=== PATIENT | female | born 1980 | race Caucasian/White ===

== ENCOUNTER 2017-10-24 20:09 | Emergency (ER) | payer MEDICAID, OTHER ==
[~2017-10-24] VITALS: Ht 162.6 cm; Wt 49.9 kg
[~2017-10-24 20:09] MED LIST: NAPR250T PO; NITR100C15 PO; ONDA4TAB8 PO
--- NOTE | 2017-10-24 23:00 | NUR ---
ASSUME PT CARE. RESTING IN BED. HERE FOR CHRONIC BACK PAIN BUT NOW PT IS STATING THAT PAIN IS R/T LLE. STABLE VITALS. NAD NOTED. AWAITING MD MATTHEWS.
--- NOTE | 2017-10-24 23:12 | NUR ---
Patient discharged to home in stable condition. Written and verbal after care instructions given. Patient verbalizes understanding of instruction.
[2017-10-24 23:14] VITALS: BP 115/76
== END 2017-10-24 23:15 | disposition home or self-care (01) ==
LOC: ER 20:18
DX: M54.42 Lumbago with sciatica, left side (principal); G89.29 Other chronic pain; F17.210 Nicotine dependence, cigarettes, uncomplicated; Z87.39 Personal history of other diseases of the musculoskeletal system and connective tissue; Z98.890 Other specified postprocedural states
CPT/HCPCS: 99282; A4606; Z7610

== ENCOUNTER 2018-01-17 12:00 | Emergency (ER) | payer MEDICAID ==
[~2018-01-17] VITALS: Ht 162.6 cm; Wt 49.9 kg
--- NOTE | 2018-01-17 12:10 | NUR ---
PATIENT STATES SHE WAS TAKING TRASH OUT AND ALL THE SUDDEN HER BACK HURT AND SHE WAS NOT ABLE TO WALK. STATES SHE HAS NOT TAKEN ANYTHING FOR PAIN AND IS ANXIOUS. STATES 10/10 BACK PAIN AND ABLE TO MOVE INDEPENDENTLY IN BED.
--- NOTE | 2018-01-17 12:36 | NUR ---
URINE SAMPLE OBTAINED
[2018-01-17 13:07] LABS: APPEARANCE,URINE Clear (CLEAR); BILIRUBIN,URINE Negative (NEGATIVE); BLOOD, URINE Trace-intact Ery/uL (NEGATIVE); COLOR,URINE Yellow (YELLOW); KETONES,URINE Negative (NEGATIVE); LEUKOCYTE ESTERASE ,URINE Negative (NEGATIVE); NITRITE, URINE Negative (NEGATIVE); PROTEIN,URINE Negative (NEGATIVE); UGLUCOSE Negative (NEGATIVE); UROBILINOGEN,URINE 0.2 EU/dL (0.2)
[2018-01-17] MEDS ORDERED: KETOROLAC TROMETHAMINE INJ 30 MG/ML VIAL ONE (13:09)
[2018-01-17] MEDS ORDERED: DEXAMETHASONE SOD PHOSPHATE 10 MG/ML VIAL ONE (13:09)
[2018-01-17] MEDS ORDERED: DIAZEPAM 5 MG TABLET ONE (13:10)
[2018-01-17 13:12] LABS: BACTERIA,URINE Rare /HPF (None Seen); RBC,URINE 0-2 /HPF (0-2); SQUAMOUS EPITHELIAL CELL,UR Rare /HPF (None Seen); WBC,URINE 0-2 /HPF (0-3)
[2018-01-17] MEDS: DEXAMETHASONE SOD PHOSPHATE 4 MG/ML VIAL IM ONE (13:12)
[2018-01-17] MEDS: KETOROLAC TROMETHAMINE INJ 60 MG/2 ML VIAL IM ONE (13:13)
--- NOTE | 2018-01-17 13:19 | NUR ---
PATIENT REFUSING VALIUM AT THIS TIME.
[2018-01-17] MEDS: DIAZEPAM 10 MG TABLET PO ONE (13:31)
[2018-01-17] MEDS ORDERED: ONDANSETRON 4 MG TAB.RAPDIS ONE (14:57)
[2018-01-17] MEDS ORDERED: MORPHINE SULFATE INJ 4 MG/ML DISP.SYRIN ONE (14:57)
--- NOTE | 2018-01-17 15:00 | NUR ---
PATIENT STATES PAIN IS BETTER WITH PREVIOUS IM MEDICATIONS BUT STILL UNABLE TO AMBULATE. PER MD 4MG IM MORPHINE TO BE GIVEN. PATIENT AGREEABLE
[2018-01-17] MEDS: ONDANSETRON 4 MG TAB.RAPDIS SL ONE (15:15)
[2018-01-17] MEDS: MORPHINE SULFATE INJ 4 MG/ML DISP.SYRIN IM ONE (15:15)
--- NOTE | 2018-01-17 15:55 | NUR ---
PATIENT ABLUATING WELL. STATES PAIN HAS IMPROVED
--- NOTE | 2018-01-17 16:37 | NUR ---
Patient discharged to home in stable condition. Written and verbal after care instructions given. Patient verbalizes understanding of instruction.
[2018-01-17 16:38] VITALS: BP 106/56
--- NOTE | 2018-01-17 16:38 | NUR ---
Patient discharged to home in stable condition. Written and verbal after care instructions given. Patient verbalizes understanding of instruction.
--- NOTE | 2018-01-17 16:38 | NUR ---
VICKIE REYES INFORMED THAT PATIENT WANTS TO TALK TO HER BEFORE SHE LEAVES.
== END 2018-01-17 16:39 | disposition home or self-care (01) ==
LOC: ER 12:02
DX: M54.42 Lumbago with sciatica, left side (principal); M51.36 Other intervertebral disc degeneration, lumbar region; F17.210 Nicotine dependence, cigarettes, uncomplicated; Z98.890 Other specified postprocedural states
CPT/HCPCS: 81001; 84703; 96372 ×3; 99284; A4606; J1100; J1885; J2270; Q0162; Z7610; 81000-TC

== ENCOUNTER 2018-11-06 17:19 | Emergency (ER) | payer MEDICAID ==
[~2018-11-06] VITALS: Ht 162.6 cm; Wt 46.3 kg
[2018-11-06 17:40] VITALS: BP 131/78
--- NOTE | 2018-11-06 18:20 | NUR ---
VICKIE REYES AT BEDSIDE FOR EVAL.
[2018-11-06] MEDS ORDERED: KETOROLAC TROMETHAMINE INJ 60 MG/2 ML VIAL IM ONE (18:30)
[2018-11-06] MEDS ORDERED: DIAZEPAM 5 MG TABLET PO ONE (18:30)
[2018-11-06] MEDS ORDERED: DEXAMETHASONE SOD PHOSPHATE 4 MG/ML VIAL IM ONE (18:30)
[2018-11-06] MEDS ORDERED: DEXAMETHASONE SOD PHOSPHATE 10 MG/ML VIAL ONE (18:36)
[2018-11-06] MEDS ORDERED: KETOROLAC TROMETHAMINE 15 MG/ML VIAL ONE (18:36)
[2018-11-06] MEDS ORDERED: DIAZEPAM 5 MG TABLET ONE (18:37)
--- NOTE | 2018-11-06 20:06 | NUR ---
Patient discharged to home in stable condition. Written and verbal after care instructions given. Patient verbalizes understanding of instruction. ambulatory with a steady gait noted. pt [id number] no acute distress noted, resp even and unlabored. advice pt not to drive or operate any machinery due to pt was given narcotic medicine. pt verbalize understanding.
== END 2018-11-06 20:08 | disposition home or self-care (01) ==
LOC: ER 17:19
DX: M54.42 Lumbago with sciatica, left side (principal); G89.29 Other chronic pain; M51.36 Other intervertebral disc degeneration, lumbar region; M62.838 Other muscle spasm; F17.210 Nicotine dependence, cigarettes, uncomplicated; Z98.890 Other specified postprocedural states
CPT/HCPCS: 84703; 96372 ×2; 99283; J1100; J1885

== ENCOUNTER 2018-11-21 19:15 | Emergency (ER) | payer MEDICAID ==
[~2018-11-21] VITALS: Ht 162.6 cm; Wt 46.3 kg
[2018-11-21 19:22] VITALS: BP 131/73
[2018-11-21] MEDS ORDERED: KETOROLAC TROMETHAMINE INJ 30 MG/ML VIAL ONE (20:14)
[2018-11-21] MEDS ORDERED: LORAZEPAM 1 MG TABLET ONE (20:14)
[2018-11-21] MEDS ORDERED: LORAZEPAM 1 MG TABLET PO ONE (20:30)
[2018-11-21] MEDS ORDERED: KETOROLAC TROMETHAMINE INJ 60 MG/2 ML VIAL IM ONE (20:30)
== END 2018-11-21 21:58 | disposition home or self-care (01) ==
LOC: ER 19:19
DX: G89.29 Other chronic pain (principal); F41.9 Anxiety disorder, unspecified; R59.1 Generalized enlarged lymph nodes; F17.210 Nicotine dependence, cigarettes, uncomplicated; Z98.890 Other specified postprocedural states; Z79.899 Other long term (current) drug therapy
CPT/HCPCS: 93005; 96372; 99283; J1885

== ENCOUNTER 2018-12-05 11:40 | Emergency (ER) | payer MEDICAID ==
[2018-12-05] MEDS ORDERED: ONDANSETRON HCL/PF 4 MG/2 ML VIAL ONE (12:59)
[2018-12-05] MEDS ORDERED: MORPHINE SULFATE INJ 4 MG/ML DISP.SYRIN ONE (12:59)
[2018-12-05] MEDS ORDERED: MORPHINE SULFATE INJ 2 MG/ML DISP.SYRIN IV ONE (13:00)
[2018-12-05] MEDS ORDERED: LORAZEPAM INJ 2 MG/ML VIAL ONE (13:00)
[2018-12-05] MEDS ORDERED: ONDANSETRON HCL/PF 4 MG/2 ML VIAL IVP ONE (13:00)
[2018-12-05] MEDS ORDERED: LORAZEPAM INJ 2 MG/ML VIAL IV ONE (13:00)
[2018-12-05] MEDS ORDERED: IV NS 0.9% 1,000 ML BAG IV ONE (13:00)
[2018-12-05] MEDS ORDERED: CT SWABBABLE VALVE TRANS SET 1 EA INFUS.SET MC ONE (13:37)
[2018-12-05] MEDS ORDERED: IOHEXOL-300 100 ML VIAL IV ONE (13:37)
[2018-12-05] MEDS ORDERED: IV NS 0.9% 250 ML IV ONE (13:37)
== END 2018-12-05 15:31 | disposition home or self-care (01) ==
DX: F41.9 Anxiety disorder, unspecified (principal); G89.29 Other chronic pain; R59.1 Generalized enlarged lymph nodes; M54.2 Cervicalgia; R10.84 Generalized abdominal pain; R11.2 Nausea with vomiting, unspecified; F17.210 Nicotine dependence, cigarettes, uncomplicated; Z68.1 Body mass index [BMI] 19.9 or less, adult; Z98.890 Other specified postprocedural states; Z60.2 Problems related to living alone; Z79.899 Other long term (current) drug therapy
CPT/HCPCS: 36415; 71045; 74177; 80048; 80076; 81001; 83690; 84703; 85025; 93005; 96361; 96374; 96375; 99284; J2060; J2270; J2405; J7030; J7050; Q9967